=== PATIENT | male | born 2000 | race Caucasian/White ===

== ENCOUNTER 2024-10-05 11:59 | Emergency (ER) | payer OTHER ==
[~2024-10-05] VITALS: Ht 175.3 cm; Wt 90.9 kg
[2024-10-05] MEDS: LR 1,000 ML IV ONE (13:00)
[2024-10-05] MEDS: ONDANSETRON 4MG 2ML VIAL IV ONE (13:17)
[2024-10-05 13:19] LABS: BASO % 0.4 % (0.0-1.0); EOS # 0.1 10^3/uL (0.0-0.5); EOS % 0.5 % (0.0-3.0); HEMATOCRIT 41.6 % (42.0-52.0); HEMOGLOBIN 13.9 g/dl (13.5-17.5); LYMPH # 1.5 10^3/uL (1.5-5.0); LYMPH % 15.2 % (24.0-44.0); MEAN CORPUSCULAR HEMOGLOBIN 29.8 pg (27.0-33.0); MEAN CORPUSCULAR HGB CONC 33.4 g/dl (32.0-36.5); MEAN CORPUSCULAR VOLUME 89.1 fl (80.0-96.0); MONO # 0.5 10^3/uL (0.0-0.8); MONO % 5.3 % (2.0-8.0); NEUTROPHILS # 7.6 10^3/uL (1.5-8.5); NEUTROPHILS % 78.3 % (36.0-66.0); PLATELET COUNT, AUTOMATED 262 10^3/uL (150-450); RED BLOOD COUNT 4.67 10^6/uL (4.30-6.10); WHITE BLOOD COUNT 9.7 10^3/uL (4.0-10.0)
[2024-10-05 13:42] LABS: ALKALINE PHOSPHATASE 75 U/L (40-129); ALT/SGPT 13 U/L (7.0-40); AST/SGOT 14 U/L (<34); BILIRUBIN,DIRECT 0.3 MG/DL (<0.4); BILIRUBIN,TOTAL 0.8 MG/DL (0.3-1.2); BLOOD UREA NITROGEN 12 MG/DL (9-23); CALCIUM LEVEL 10.5 MG/DL (8.5-10.1); CARBON DIOXIDE LEVEL 30 MMOL/L (20-31); CHLORIDE LEVEL 106 MMOL/L (98-107); CREATININE FOR GFR 0.85 MG/DL (0.70-1.30); GLOMERULAR FILTRATION RATE > 60.0 (>60); GLUCOSE, FASTING 124 MG/DL (60-100); POTASSIUM SERUM 4.3 MMOL/L (3.5-5.1); SODIUM LEVEL 143 MMOL/L (136-145); TOTAL PROTEIN 7.6 G/DL (5.7-8.2)
[2024-10-05] MEDS ORDERED: BUPR2SUB SL (13:56)
[2024-10-05] MEDS: MORPHINE 4 MG/ML 1ML VIAL IV ONE (13:58)
[2024-10-05] MEDS ORDERED: HOME MED LIST COMPLETE! XX SCH (14:00)
[2024-10-05] MEDS: ACETAMINOPHEN 500 MG TAB PO ONE (14:46)
[2024-10-05 16:16] VITALS: TEMP 97.6
[2024-10-05 16:21] VITALS: BP 138/72; O2SAT 98
[2024-10-05] MEDS ORDERED: MORPHINE 4 MG/ML 1ML VIAL IV ONE (16:30)
== END 2024-10-05 16:35 | disposition short-term general hospital (02) ==
LOC: M ED 11:59
DX: S02.91XB Unspecified fracture of skull, initial encounter for open fracture (principal); S32.424 Nondisplaced fracture of posterior wall of right acetabulum; Y04.8XXA Assault by other bodily force, initial encounter; F17.200 Nicotine dependence, unspecified, uncomplicated; Z88.0 Allergy status to penicillin; Z79.899 Other long term (current) drug therapy; Y92.9 Unspecified place or not applicable; Y93.89 Activity, other specified; Y99.9 Unspecified external cause status
CPT/HCPCS: 70450; 80048; 80076; 85025; 96365; 96366; 96375; 99285; J2405